=== PATIENT | female | born 1970 | race American Indian/Alaskan Native ===

== ENCOUNTER 2017-09-07 04:01 | Emergency (ER) | payer OTHER ==
[2017-09-07 06:37] VITALS: BP 128/89
--- NOTE | 2017-09-07 07:56 | Cat Scan Report ---
FINAL REPORT EXAM: CT CERVICAL SPINE WO CON HISTORY: Tenderness to touch back of neck TECHNIQUE: Routine axial imaging was obtained of the cervical spine without IV contrast with sagittal coronal reconstructions. FINDINGS: There is moderate narrowing of the C5-C6 and C6-C7 disc with anterior osteophytes. The alignment appears normal. There is no evidence of fracture. The facet joints are well maintained. The prevertebral soft tissues and C1-C2 articulation appear intact. IMPRESSION: Degenerative arthritic changes of the C5-C6 and C6-C7 levels.
[2017-09-07] MEDS ORDERED: MOTRIN PO ONE (08:07)
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
== END 2017-09-07 09:22 | disposition home or self-care (01) ==
LOC: ED 04:01
DX: S13.4XXA Sprain of ligaments of cervical spine, initial encounter (principal); S39.012A Strain of muscle, fascia and tendon of lower back, initial encounter; S86.911A Strain of unspecified muscle(s) and tendon(s) at lower leg level, right leg, initial encounter; I10 Essential (primary) hypertension; J45.909 Unspecified asthma, uncomplicated; G43.909 Migraine, unspecified, not intractable, without status migrainosus; Z90.49 Acquired absence of other specified parts of digestive tract; Z98.51 Tubal ligation status; Z90.710 Acquired absence of both cervix and uterus; Z87.891 Personal history of nicotine dependence; V89.2XXA Person injured in unspecified motor-vehicle accident, traffic, initial encounter; Y93.89 Activity, other specified; Y99.8 Other external cause status; Y92.410 Unspecified street and highway as the place of occurrence of the external cause
CPT/HCPCS: 72125; 99284